=== PATIENT | female | born 2000 | race American Indian/Alaskan Native ===

== ENCOUNTER 2021-05-08 12:08 | Emergency (ER) | payer SELFPAY ==
--- NOTE | 2021-05-08 12:47 | Emergency Department Report ---
ED Abdominal Pain HPI - General Chief Complaint: Abdominal Pain Stated Complaint: STOMACH PAIN Time Seen by Provider: 05/08/21 12:25 Source: patient Mode of arrival: Ambulatory Limitations: No Limitations - History of Present Illness Initial Comments: 21-year-old female presents to the ER today with abdominal pain and vaginal odor. Patient states that she started having intermittent epigastric abdominal pain as well as a pulling pain in her left lower quadrant intermittently for about 1 week. She denies any nausea, vomiting or bowel changes. She states that her last menstrual cycle was sometime in March 2021. She states that she spotted for couple days last week and then this stopped. Then 2 days ago she spotted and then this has since stopped. She states that she is not sure if she is . She has not taken a home test. She also reports unprotected sexual intercourse with a new partner about couple weeks ago and now she is having vaginal odor and a white discharge. She denies any UTI symptoms. She denies any fever or chills. She has never had any abdominal surgeries. She is G1, P0 Ab1 (elective ) MD Complaint: abdominal pain, other (vaginal ordor; vaginal spotting ) -: week(s) (1) - Related Data Previous Rx's Medication Instructions Recorded Last Taken Type Doxycycline Hyclate 100 mg PO BID #14 tablet. 05/08/21 Unknown Rx Famotidine [Pepcid] 20 mg PO BID #30 tablet 05/08/21 Unknown Rx Fluconazole [Diflucan TAB] 200 mg PO QDAY #2 tablet 05/08/21 Unknown Rx Allergies Allergy/AdvReac Type Severity Reaction Status Date / Time No Known Allergies Allergy Verified 05/08/21 12:23 ED Review of Systems ROS: Stated complaint: STOMACH PAIN Other details as noted in HPI Comment: All other systems reviewed and negative Constitutional: denies: chills, fever Eyes: denies: eye pain, eye discharge, vision change ENT: denies: ear pain, throat pain, dental pain, hearing loss, epistaxis Respiratory: denies: cough, shortness of breath, SOB with exertion, SOB at rest, wheezing Cardiovascular: denies: chest pain, palpitations, dyspnea on exertion, edema, syncope, paroxysmal nocturnal dyspnea Gastrointestinal: abdominal pain. denies: nausea, vomiting, diarrhea, constipation, hematemesis, hematochezia Genitourinary: discharge, abnormal menses. denies: urgency, dysuria, frequency, hematuria, dyspareunia Musculoskeletal: denies: back pain, joint swelling, arthralgia Skin: denies: rash, lesions, change in color, change in hair/nails, pruritus Neurological: denies: headache, weakness, numbness, paresthesias, abnormal gait, vertigo Psychiatric: denies: anxiety, depression, auditory hallucinations, visual hallucinations, homicidal thoughts, suicidal thoughts Hematological/Lymphatic: denies: easy bleeding, easy bruising, swollen glands ED Past Medical Hx - Past Medical History Previous Medical History?: No - Surgical History Past Surgical History?: No - Medications Home Medications: Home Medications Medication Instructions Recorded Confirmed Last Taken Type Doxycycline Hyclate 100 mg PO BID #14 tablet.dr 05/08/21 Unknown Rx Famotidine [Pepcid] 20 mg PO BID #30 tablet 05/08/21 Unknown Rx Fluconazole [Diflucan TAB] 200 mg PO QDAY #2 tablet 05/08/21 Unknown Rx ED Physical Exam - General Limitations: No Limitations General appearance: alert, in no apparent distress - Head Head exam: Present: atraumatic, normocephalic, normal inspection - Eye Eye exam: Present: normal appearance, PERRL, EOMI Pupils: Present: normal accommodation - ENT ENT exam: Present: normal exam - Neck Neck exam: Present: normal inspection, full ROM. Absent: meningismus - Respiratory Respiratory exam: Present: normal lung sounds bilaterally. Absent: respiratory distress, wheezes, rales, rhonchi - Cardiovascular Cardiovascular Exam: Present: regular rate, normal rhythm, normal heart sounds - GI/Abdominal GI/Abdominal exam: Present: soft. 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 Absent: cervical discharge, vaginal bleeding Bi-manual exam: Present: normal bi-manual exam, adnexal tenderness (Mild bilateral adnexal tenderness). Absent: cervical motion tendernes, adnexal mass, uterine enlargement, uterine tenderness - Neurological Exam Neurological exam: Present: alert, oriented X3, CN II-XII intact, normal gait - Psychiatric Psychiatric exam: Present: normal affect, normal mood - Skin Skin exam: Present: intact ED Course Vital Signs 05/08/21 12:14 Temperature 98.2 F Pulse Rate 62 Respiratory 16 Rate Blood Pressure 112/78 [Left] O2 Sat by Pulse 100 Oximetry ED Medical Decision Making - Lab Data Result diagrams: 05/08/21 13:04 05/08/21 13:04 - Medical Decision Making All labs reviewed -CBC, and CMP unremarkable. Lipase, hCG and urinalysis normal. Wet prep shows rare yeast, but no BV or Trichomonas. Patient currently sitting comfortably on the chair, on her phone. She is not in any acute distress. She is not toxic or ill-appearing. She appears hydrated. She has a soft nonsurgical abdominal exam. Pelvic exam showed scant amount of white discharge and, mild adnexal tenderness bilaterally but otherwise no CMT and no abnormal bleeding or any other abnormality. At this time there is no concern for cholecystitis, bowel perforation, appendicitis, tubo-ovarian abscess, ovarian cyst or sepsis or any other emergent conditions warranting any additional testing, or admission at this time. Suspect patient epigastric pain could be related to the gastritis at this time, she is also concerned for possible STD. She will be treated prophylactically for gonorrhea and chlamydia and she will be started on Pepcid. Patient expressed understanding of all instructions and agree with plan. Patient stable at time of discharge. Critical care attestation.: If time is entered above; I have spent that time in minutes in the direct care of this critically ill patient, excluding procedure time. ED Disposition Clinical Impression: Epigastric pain, Yeast vaginitis, Concern about STD in female without diagnosis Disposition: HOME / SELF CARE / HOMELESS Is pt being admited?: No Does the pt Need Aspirin: No Condition: Stable Instructions: Gastritis, Adult, [id number], Vaginal Yeast Infection, Adult, Abdominal Pain, Adult, [id number], Safe Sex, Abdominal Pain (ED) Additional Instructions: Recommend that you take the Pepcid as prescribed to help with the pain in the upper abdomen. You can take Tylenol as needed for pain. Recommend that you take the doxycycline as prescribed and to completion and recommend taking it with food. I recommend following up with [facility] for additional STD testing such as hepatitis, HIV and syphilis. I do recommend that you partner get tested and treated as well. Follow-up closely also with your PCP. Return to the ER if your symptoms changes or worsens in any way. Prescriptions: Fluconazole [Diflucan TAB] 200 mg PO QDAY #2 tablet Doxycycline Hyclate 100 mg PO BID #14 tablet. Famotidine [Pepcid] 20 mg PO BID #30 tablet Referrals: PRIMARY CARE, [Primary Care Provider] - 3-5 Days [facility] [Provider Group] - 3-5 Days [facility] [Provider Group] - 3-5 Days [facility] [Provider Group] - 3-5 Days Time of Disposition: 14:28 Print Language: FIJIAN
[2021-05-08] MEDS ORDERED: ACETAMINOPHEN 325 MG TAB PO ONE (12:49)
[2021-05-08 13:32] LABS: Bilirubin,Urine NEG (Negative); Blood,Urine MOD (Negative); Color,Urine Amber (Yellow); Protein,Urine <15 mg/dL mg/dL (Negative); RBC,Urine < 1.0 /HPF (0.0-6.0); Urobilinogen,Urine < 2.0 mg/dL (<2.0)
[2021-05-08 13:44] LABS: Basophils % (Auto) 0.6 % (0.0-1.8); Eosinophils # (Auto) 0.1 K/mm3 (0.0-0.4); Eosinophils % (Auto) 1.5 % (0.0-4.3); Hematocrit 43.6 % (30.3-42.9); Hemoglobin 14.3 gm/dl (10.1-14.3); Lymphocytes # (Auto) 1.4 K/mm3 (1.2-5.4); Lymphocytes % (Auto) 29.2 % (13.4-35.0); Mean Corpuscular HGB Conc 33 % (30-34); Mean Corpuscular Volume 89 fl (79-97); Monocytes # (Auto) 0.4 K/mm3 (0.0-0.8); Monocytes % (Auto) 9.3 % (0.0-7.3); Platelet Count 263 K/mm3 (140-440); Red Blood Count 4.91 M/mm3 (3.65-5.03)
[2021-05-08 14:09] LABS: WBC,Urine < 1.0 /HPF (0.0-6.0)
[2021-05-08 14:11] LABS: Alanine Aminotransferase 6 units/L (7-56); Albumin 4.5 g/dL (3.9-5); Blood Urea Nitrogen 15 mg/dL (7-17); Calcium 9.4 mg/dL (8.4-10.2); Hemolysis Index 5
[2021-05-08 14:14] LABS: BUN/Creatinine Ratio 21
[2021-05-08] MEDS ORDERED: LIDOCAINE-MPF (1%) 10 MG/1 ML VIAL 5 ML INFILTRATI ONE (14:23)
[2021-05-08 14:54] VITALS: BP 129/90
== END 2021-05-08 14:57 | disposition home or self-care (01) ==
LOC: ED 12:08
DX: N76.0 Acute vaginitis (principal); R10.13 Epigastric pain; Z20.2 Contact with and (suspected) exposure to infections with a predominantly sexual mode of transmission; Z79.899 Other long term (current) drug therapy
CPT/HCPCS: 36415; 80053; 81001; 83690; 84703; 85025; 87210; 96372; 99284; J0696